=== PATIENT | female | born 1965 | race Caucasian/White ===

== ENCOUNTER 2016-06-23 09:03 | Emergency (ER) | payer OTHER ==
[~2016-06-23] VITALS: Wt 81.0 kg
[~2016-06-23 09:03] MED LIST: ALBUTEROL; AMO500 PO; ASPIRIN; IBUP-1542 PO; LOSA25TA5 PO; OMEP40CA6 PO; PRED50TA PO
[2016-06-23] MEDS ORDERED: KETOROLAC 60 MG INJ IM STA (09:54)
--- NOTE | 2016-06-23 10:27 | ERD ---
ER Documentation Chief Complaint Date/Time DATE: 06/23/16 TIME: 10:24 Chief Complaint LEFT HAND/KNEE/LEG PAIN AFTER FALL HPI This is a 51-year-old Pashto-speaking female that presents to the emergency department complaining of left hand pain and left knee pain that has been present for the past 12 hours. The patient had a ground-level trip and fall outside of her apartment yesterday and landed on a flexed left knee on a cement surface. The patient also had landed on her left outstretched hand. She is complaining of pain over her left second digit which she states is exacerbated with movement. She is right-handed dominant. She denies any pain of her wrist. She states that the knee pain on the left side is also exacerbated by movement and is 8 out of 10 in intensity. She did not take any analgesic medication prior to arrival. Upon awakening this morning the patient stated she noticed swelling on the front and back of her knee. She states there is also minimal amount of pain over the proximal surface of her left lower extremity. She denies any tenderness of her left calf. She stated there was no abrasions or lacerations as a result of the fall. She has no numbness or tingling of her lower extremities. She did not hit her head or lose consciousness. ROS All systems reviewed and are negative except as per history of present illness. Medications Home Meds Active Scripts Prednisone* (Prednisone*) 50 Mg Tablet, 50 MG PO DAILY, #5 TAB Prov:LEONEL CORTEZ NP 05/17/16 Ibuprofen* (Motrin*) 600 Mg Tab, 600 MG PO Q6H Y for PAIN AND OR ELEVATED TEMP, #30 TAB Prov:LEONEL CORTEZ NP 05/17/16 Amoxicillin* (Amoxicillin*) 500 Mg Cap, 500 MG PO TID for 10 Days, CAP Prov:LEONEL CORTEZ NP 05/17/16 Reported Medications [Albuterol] No Conflict Check 02/25/16 [Aspirin] No Conflict Check 02/25/16 Losartan Potassium* (Losartan Potassium*) 25 Mg Tablet, 25 MG PO DAILY, TAB 01/03/16 Omeprazole* (Omeprazole*) 40 Mg Capsule.dr, 40 MG PO DAILY, #30 CAP 01/03/16 Allergies Allergies: Coded Allergies: No Known Allergy (Unverified , 8/8/16) PMhx/Soc Anesthesia Reaction: No Hx Neurological Disorder: No Hx Respiratory Disorders: Yes (ASTHMA) Hx Cardiac Disorders: Yes (HTN) Hx Psychiatric Problems: No Hx Alcohol Use: No Hx Substance Use: No Hx Tobacco Use: No Smoking Status: Never smoker Physical Exam Vitals Vital Signs Date Time Temp Pulse Resp B/P Pulse Ox O2 Delivery O2 Flow Rate FiO2 06/23/16 09:05 98.0 81 18 126/51 99 Physical Exam Constitutional:Well-developed. Well-nourished. HEENT:Normocephalic. Atraumatic.Pupils were equal round reactive to light. Moist mucous membranes.No tonsillar exudates. Neck: No nuchal rigidity. No lymphadenopathy. No posterior cervical spine tenderness or step-offs. Respiratory: Not using accessory muscles of respiration.Lungs were clear to auscultation bilaterally. No rhonchi. No rales. No wheezing. Cardiovascular: Regular rate regular rhythm.No murmurs. No rubs were appreciated.S1, S2 normal. Distal pulses are palpable 2+ bilaterally. GI: Abdomen was soft. Nontender. Non Distended. No pulsatile abdominal masses or bruits. No rebound. No guarding. Bowel sounds were present and normal. Muscle skeletal: Full range of motion of both the upper and lower extremities bilaterally.Normal muscle tone.No assymetrical calf tenderness or swelling. Tenderness of the left patella with mild effusion on the anterior aspect of the knee and mild suprapatellar tenderness and fullness to the posterior aspect of the knee. No laxity on valgus or varus stress testing at the left or the right knee. No tenderness over the bilateral fibular head. No asymmetrical calf tenderness or swelling and Homans sign negative bilaterally. Flexion extension ulnar and radial deviation of the bilateral wrists were normal. Tenderness over the distal left second metacarpal, left index finger was not held in slight flexion and no tenderness with passive extension of the left index finger and no fusiform swelling of the left index finger. Skin: No petechia, no purpura. No lesions on the palms or the soles of the feet. No maculopapular rash. No abrasions and no erythremia of the overlying skin that had the blunt trauma. NEURO: Patient was alert, awake, orientated x3.No facial droop. Gait observed and normal with no ataxia.Speech had regular rate and rhythm. No focal neurological deficits. Results 24 hrs Current Medications Medications (Trade) Dose Ordered Sig/Feliciano Route PRN Reason Start Time Stop Time Status Last Admin Dose Admin Ketorolac Tromethamine (Toradol) 60 mg ONCE STAT IM 06/23/16 09:54 06/23/16 09:55 DC 06/23/16 10:04 Procedures/MDM This patient presented to the emergency department with a ground-level fall on an outstretched hand in a flexed left knee. Utilizing the [place] ankle and knee rules radiographic imaging was obtained of the left knee. There is no fractures or dislocations. The patient had no evidence or risk factors for underlying necrotizing fasciitis that could be a result of the blunt trauma. I did feel the patient's pain was from a sprain and she was placed in a knee immobilizer for comfort. Afterwards the patient was reevaluated by myself and was neurovascularly intact. There is no physical exam findings to suggest compartment syndrome of the left lower extremity or a deep vein thrombosis. She received a Toradol injection for analgesic control. A two-view radiographic imaging of the left hand or and reviewed by myself indicated there was no evidence of a fracture. The patient was discharged home in fair condition. They were instructed to return to the emergency department at any time if there was any worsening of their condition. The patient stated they would follow up with their PCP in the next 24-48 hours to initiate a suitable medication regimen under the care of their PCP as well as to allow their PCP to monitor any drug reactions. The patient was discharged home with prescriptions after they gave informed consent to the new medication. They were also fully informed by myself on the adverse effects and adverse drug interactions in order to provide adequate safeguards to prevent possible adverse reactions to medications. Departure Diagnosis: Primary Impression: Left knee sprain Encounter type: initial encounter Involved ligament of knee: unspecified ligament Qualified Code: S83.92XA - Sprain of left knee, unspecified ligament , initial encounter Additional Impression: Sprain of hand, left Encounter type: initial encounter Qualified Code: S63.92XA - Sprain of hand , left, initial encounter Condition: Fair PRASHANTLYDIA Jun 23, 2016 10:27
--- NOTE | 2016-06-23 10:37 | RADRPT ---
PROCEDURE: XR left hand. CLINICAL INDICATION: Hand pain TECHNIQUE: Three views are available for review. COMPARISON: No prior studies are available for comparison. FINDINGS: The osseous structures are normal in mineralization, architecture and alignment. No fracture or oss eous lesion is identified. The joints are unremarkable. The soft tissues are unremarkable. IMPRESSION: Unremarkable examination. RPTAT: HGDB .Maximo Birmingham MD, Date Time Electronically viewed and signed by .Maximo Birmingham MD, on 06/23/2016 10:37 .B/
--- NOTE | 2016-06-23 10:38 | RADRPT ---
PROCEDURE: XR left knee. CLINICAL INDICATION: Knee pain TECHNIQUE: 3 views are available for review. COMPARISON: None available FINDINGS: The osseous structures are normal in mineralization, architecture and alignment. No fractures are i dentified. No osseous lesions are identified. The joints are unremarkable. The soft tissues are u nremarkable. IMPRESSION: Unremarkable examination RPTAT: HGDB .Maximo Birmingham MD, MD Date Time Electronically viewed and signed by .Maximo Birmingham MD, on 06/23/2016 10:38 .B/
[2016-06-23] MEDS ORDERED: IBUP800T25 PO (11:13)
== END 2016-06-23 11:31 | disposition home or self-care (01) ==
LOC: FTE 09:03
DX: S83.92XA Sprain of unspecified site of left knee, initial encounter (principal); S63.92XA Sprain of unspecified part of left wrist and hand, initial encounter; J45.901 Unspecified asthma with (acute) exacerbation; I10 Essential (primary) hypertension; W01.0XXA Fall on same level from slipping, tripping and stumbling without subsequent striking against object, initial encounter; Y92.039 Unspecified place in apartment as the place of occurrence of the external cause
CPT/HCPCS: 73130; 73562; J1885

== ENCOUNTER 2016-11-13 17:16 | Emergency (ER) | payer OTHER ==
[~2016-11-13] VITALS: Ht 152.4 cm; Wt 79.5 kg
[~2016-11-13 17:16] MED LIST changes: +IBUP800T25 PO
[2016-11-13 17:23] VITALS: Ht 152.4 cm; Wt 79.5 kg
[2016-11-13] MEDS ORDERED: ERYTOPOI LEFT EYE (19:12)
[2016-11-13] MEDS ORDERED: IBUP-1542 PO (19:12)
--- NOTE | 2016-11-13 19:16 | ERD ---
ER Documentation Chief Complaint Date/Time DATE: 11/13/16 TIME: 19:13 Chief Complaint LT EYE REDNESS AND PAIN, HEADACHE HPI Patient is a 51-year-old female who presents with left eye redness that began today. She also has mild left-sided headache. Denies any nausea vomiting, dizziness, photosensitivity, double or blurry vision. Denies any trauma. Denies any pain with eye movement. Denies any fever. Denies any exudate or crusting. She has not taken any medication for pain. ROS All systems reviewed and are negative except as per history of present illness. Medications Home Meds Active Scripts Ibuprofen* (Motrin*) 600 Mg Tab, 600 MG PO Q6, #30 TAB Prov:RHEA MONTES PA-C 11/13/16 Erythromycin* (Erythromycin* Ophthalmic) 1 Applic Oint, 1 APPLIC LEFT EYE QID for 7 Days, EA Prov:RHEA MOTNES PA-C 11/13/16 Ibuprofen* (Motrin*) 800 Mg Tab, 800 MG PO Q6H Y for PAIN AND OR ELEVATED TEMP, #30 TAB Prov:LYDIA CERDA 06/23/16 Prednisone* (Prednisone*) 50 Mg Tablet, 50 MG PO DAILY, #5 TAB Prov:LEONEL CORTEZ NP 05/17/16 Ibuprofen* (Motrin*) 600 Mg Tab, 600 MG PO Q6H Y for PAIN AND OR ELEVATED TEMP, #30 TAB Prov:LEONEL CORTEZ NP 05/17/16 Amoxicillin* (Amoxicillin*) 500 Mg Cap, 500 MG PO TID for 10 Days, CAP Prov:LEONEL CORTEZ NP 05/17/16 Reported Medications [Albuterol] No Conflict Check 02/25/16 [Aspirin] No Conflict Check 02/25/16 Losartan Potassium* (Losartan Potassium*) 25 Mg Tablet, 25 MG PO DAILY, TAB 01/03/16 Omeprazole* (Omeprazole*) 40 Mg Capsule.dr, 40 MG PO DAILY, #30 CAP 01/03/16 Allergies Allergies: Coded Allergies: No Known Allergy (Unverified , 01/03/16) PMhx/Soc Anesthesia Reaction: No Hx Neurological Disorder: No Hx Respiratory Disorders: Yes (ASTHMA) Hx Cardiac Disorders: Yes (HTN) Hx Psychiatric Problems: No Hx Alcohol Use: No Hx Substance Use: No Hx Tobacco Use: No Smoking Status: Never smoker FmHx Family History: No diabetes Physical Exam Vitals Vital Signs Date Time Temp Pulse Resp B/P Pulse Ox O2 Delivery O2 Flow Rate FiO2 11/13/16 17:23 97.6 81 16 129/61 100 Physical Exam Const: [] Head: Atraumatic Eyes: Left lateral subconjunctival hemorrhage, pupils equal round reactive to light, extraocular movements intact, no periorbital erythema or edema ENT: Normal External Ears, Nose and Mouth. Neck: Full range of motion..~ No meningismus. Resp: Clear to auscultation bilaterally Cardio: Regular rate and rhythm, no murmurs Procedures/MDM Patient has subconjunctival hemorrhage. I explained her these resolved typically on their own. I did however give her erythromycin ointment in case there is underlying infection as well as Motrin for pain. Her visual acuity was 20/[address] around both eyes separately and together. Low suspicion for iritis, uveitis, glaucoma, retinal detachment, or any other ocular emergency. Recommended this patient follow up with her primary care doctor within 48 hours or return to the emergency room for any worsening of symptoms. However this time I do believe there is suitable for outpatient management. I answered all their questions and they agreed with the plan and were discharged home. Departure Diagnosis: Primary Impression: Subconjunctival hemorrhage Condition: Stable Patient Instructions: Subconjunctival Hemorrhage Additional Instructions: Call your primary care doctor TOMORROW for an appointment during the next 1-2 days.See the doctor sooner or return here if your condition worsens before your appointment time. RHEA MONTES PA-C Nov 13, 2016 19:16
== END 2016-11-13 19:38 | disposition home or self-care (01) ==
LOC: FTE 17:16
DX: H11.32 Conjunctival hemorrhage, left eye (principal); J45.909 Unspecified asthma, uncomplicated; I10 Essential (primary) hypertension; Z79.82 Long term (current) use of aspirin
CPT/HCPCS: 99283

== ENCOUNTER 2017-01-19 06:10 | Day surgery (SDC) | payer OTHER ==
[2017-01-19] VITALS (28 sets, daily range): BP systolic 107–148; BP diastolic 57–94; PULSE 62–80; RESP 11–28; Ht 152.4 cm; Wt 80.0 kg
[~2017-01-19] VITALS: Ht 152.4 cm; Wt 80.0 kg
[~2017-01-19 06:10] MED LIST changes: +ERYTOPOI LEFT EYE
[2017-01-19] MEDS ORDERED: HEPARIN 1000 UNITS/ML 10 ML INJ ONE (06:41)
[2017-01-19] MEDS ORDERED: IODIXANOL LOCM 100 ML BTL ONE (06:41)
[2017-01-19] MEDS ORDERED: LIDOCAINE 1% (MDV) 20 ML INJ ONE (06:41)
[2017-01-19] MEDS ORDERED: VERAPAMIL 5 MG INJ ONE (06:41)
[2017-01-19] MEDS ORDERED: NITROGLYCERIN (IC) 100 MCG/ML INJ ONE (06:41)
[2017-01-19] MEDS ORDERED: FENTAnyl 50 MCG/ML VIAL ONE (06:42)
[2017-01-19] MEDS ORDERED: MIDAZOLAM 1 MG/ML 2 ML INJ ONE (06:42)
[2017-01-19] MEDS ORDERED: ALBU90AE INHALATION (06:55)
[2017-01-19] MEDS ORDERED: RANI300T PO (06:55)
[2017-01-19] MEDS ORDERED: FLUT16SP17 NASAL (06:55)
[2017-01-19] MEDS ORDERED: CETI10TA34 PO (06:55)
[2017-01-19] MEDS ORDERED: LORA0.5T PO (06:55)
[2017-01-19] MEDS ORDERED: OMEP20CA16 PO (06:55)
[2017-01-19] MEDS ORDERED: MONT10TA24 PO (06:55)
[2017-01-19] MEDS ORDERED: AZEL137S9 NASAL (06:55)
[2017-01-19] MEDS ORDERED: METO10TA96 PO (06:55)
[2017-01-19 07:08] LABS: BASOPHILS % 0.4 % (0.0-2.0); EOSINOPHILS # 0.1 10^3/ul (0.0-0.5); EOSINOPHILS % 1.5 % (0.0-7.0); HEMATOCRIT 37.3 % (37.0-47.0); HEMOGLOBIN 12.7 g/dl (12.0-16.0); LYMPHOCYTES # 1.6 10^3/ul (0.8-2.9); LYMPHOCYTES % 29.4 % (15.0-51.0); MEAN CORPUSCULAR HEMOGLOBIN 30.9 pg (29.0-33.0); MEAN CORPUSCULAR VOLUME 90.8 fl (82.0-101.0); MEAN PLATELET VOLUME 9.8 fl (7.4-10.4); MONOCYTE # 0.5 10^3/ul (0.3-0.9); MONOCYTES % 8.2 % (0.0-11.0); NEUTROPHILS % 60.1 % (39.0-77.0); PLATELET COUNT 209 10^3/UL (140-415); RED BLOOD COUNT 4.11 10^6/ul (4.20-5.40); RED CELL DISTRIBUTION WIDTH 12.2 % (11.5-14.5); WHITE BLOOD COUNT 5.5 10^3/ul (4.8-10.8)
[2017-01-19 07:31] LABS: INR 1.04; PROTIME 13.6 Sec (12.2-14.2); PT RATIO 1.1
[2017-01-19 07:57] LABS: CALCIUM 8.6 mg/dl (8.4-10.2); CREATININE 0.52 mg/dl (0.44-1.00); POTASSIUM 4.4 mmol/L (3.5-5.1)
[2017-01-19] MEDS ORDERED: SOD CHLORIDE 0.9% 1,000 ML IV SCH (08:06)
--- NOTE | 2017-01-19 08:06 | EN ---
Date/Time of Note Date/Time of Note DATE: 01/19/17 TIME: 08:03 Event Note Cardiology Cardiology Event Note DATE OF PROCEDURE: 01/19/17 MUSHROOM PRESS OPERATOR: Charlie Jj MD PROCEDURES PERFORMED: 1. Left heart catheterization. PREINTERVENTION DIAGNOSIS: 1. Chest pain, positive stress echo POSTINTERVENTION DIAGNOSES: 1. No significant coronary artery disease SEDATION: Conscious sedation with fentanyl 50 mcg IV and Versed 1 mg IV. DESCRIPTION OF PROCEDURE: The patient placed on monitor car operator, pulse oximetry and supplemental oxygen as necessary. The right wrist was prepped and draped in a sterile fashion and infiltrated with 1% lidocaine. Via the Seldinger technique, the right radial artery was accessed. A 5-Uzbek sheath was inserted and through this the right coronary catheter and left coronary catheter and pigtail were advanced into the right coronary artery and left coronary artery and the left ventricle. Placement confirmed by fluoroscopy and hemodynamics. CATHETERIZATION FINDINGS: 1. Left main: No significant disease. 2. LAD: Large caliber vessel with no significant disease. 3. Circumflex: Medium caliber vessel with no significant disease. 4. Obtuse marginal: Medium caliber vessel with no significant disease. 5. RCA: Large dominant vessel with no significant disease TOTAL CONTRAST: 25cc FLUOROSCOPY TIME: 3.5 minutes. COMPLICATIONS: None. FINAL RESULTS: No siginficant coronary artery disease RECOMMENDATIONS: 1. Medical Management 2. Discharge home CHARLIE JJ Jan 19, 2017 08:06
[2017-01-19] MEDS ORDERED: METOCLOPRAMIDE 10 MG TAB PO PRN (08:30)
[2017-01-19] MEDS ORDERED: LORAZEPAM 0.5 MG TAB PO PRN (08:30)
[2017-01-19] MEDS ORDERED: AZELASTINE 30 ML NAS SPRAY NASAL SCH (09:00)
[2017-01-19] MEDS ORDERED: FLUTICASONE 0.05% 16 GM NAS SPRAY NASAL SCH (09:00)
[2017-01-19] MEDS ORDERED: LOSARTAN 25 MG TAB PO SCH (09:00)
--- NOTE | 2017-01-19 17:12 | RADRPT ---
Vent Rate: 79 bpm RR Interval: 0 msec MS Interval: 146 msec QRS Duration: 78 msec QT Interval: 368 msec QTC Interval: 421 msec P-R-T Weir: 52 - 12 - 55 degrees Normal sinus rhythm Normal ECG Electronically Signed By: Pola Paul [id number]
[2017-01-19] MEDS ORDERED: RANITIDINE 150 MG TAB PO SCH (21:00)
[2017-01-19] MEDS ORDERED: MONTELUKAST 10 MG TAB PO SCH (21:00)
== END 2017-01-19 12:15 | disposition home or self-care (01) ==
LOC: SDS 06:10 → CCL 12:15
PROVIDERS: ATTEND Internal Medicine
DX: R07.9 Chest pain, unspecified (principal); R94.39 Abnormal result of other cardiovascular function study
CPT/HCPCS: 80048; 85025; 85610; 93005; 93458; C1769; C1887; J1644; J2250; J3010; Q9967; Z7610

== ENCOUNTER 2017-05-25 21:18 | Emergency (ER) | END 2017-05-26 06:01 | disposition home or self-care (01) ==

== ENCOUNTER 2018-12-24 00:33 | Emergency (ER) | payer OTHER ==
[~2018-12-24] VITALS: Ht 154.9 cm; Wt 70.5 kg
[~2018-12-24 00:33] MED LIST changes: +ALBU90AE INHALATION; -AMO500 PO; +AZEL137S9 NASAL; +CETI10TA34 PO; -ERYTOPOI LEFT EYE; +FLUT16SP17 NASAL; -IBUP800T25 PO; +LORA0.5T PO; +LOSA25TA12 PO; -LOSA25TA5 PO; +METO10TA3 PO; +MONT10TA24 PO; +OMEP20CA16 PO; -PRED50TA PO; +RANI300T PO; +SUCR1TAB56 PO
[2018-12-24 00:43] VITALS: Ht 154.9 cm; Wt 70.5 kg
[2018-12-24] MEDS ORDERED: LORAZEPAM 2 MG INJ IV ONE (03:30)
[2018-12-24] MEDS ORDERED: LIDOCAINE/MYLANTA 40 ML BTL PO ONE (03:30)
--- NOTE | 2018-12-24 04:44 | ERD ---
ER Documentation Chief Complaint Chief Complaint CHEST PAIN X1HR WITH SOB HPI This is a 53-year-old female chest pain for 1 hour with shortness of breath. Pain is mild to moderate in intensity with no exacerbating alleviating factors. She said it is worse secondary to anxiety she feels a metallic taste in the back of her mouth. Denies fevers or chills. Denies any other current complaints. ROS All systems reviewed and are negative except as per history of present illness. Medications Home Meds Active Scripts Sucralfate* (Carafate*) 1 Gm Tab, 1 GM PO QID, #60 TAB Prov:MACIE SANCHEZ 12/24/18 Ibuprofen* (Motrin*) 600 Mg Tab, 600 MG PO Q6, #30 TAB Prov:BECKY LEIGH 05/26/17 Reported Medications Metoclopramide Hcl* (Metoclopramide Hcl*) 10 Mg Tablet, 10 MG PO TID PRN for NAUSEA, TAB 01/19/17 Cetirizine Hcl* (Cetirizine Hcl*) 10 Mg Tab.chew, 10 MG PO DAILY, #30 TAB 01/19/17 Omeprazole* (Omeprazole*) 20 Mg Capsule.dr, 20 MG PO BID, #60 CAP 01/19/17 Ranitidine Hcl* (Ranitidine Hcl*) 300 Mg Tablet, 300 MG PO HS, #30 TAB 01/19/17 Montelukast Sodium* (Montelukast Sodium*) 10 Mg Tablet, 10 MG PO QHS, #30 TAB 01/19/17 Lorazepam* (Lorazepam*) 0.5 Mg Tablet, 0.5 MG PO HS PRN for ANXIETY, TAB 01/19/17 Fluticasone Propionate* (Fluticasone Propionate* Nasal) 50 Mcg/[place] - 16 Gm [place].susp, 1 SPRAY NASAL BID, #1 BOTTLE TO EACH NOSTRIL 01/19/17 Azelastine Hcl* (Azelastine Hcl*) 137 Mcg/0.137 Ml [place].pump, 1 SPRAY NASAL BID, #1 EA TO EACH NOSTRIL 01/19/17 Albuterol Sulfate (Proair Respiclick) 90 Mcg Aer.pow.ba, 2 PUFFS INHALATION Q4 PRN for SHORTNESS OF BREATH, #1 BOTTLE 01/19/17 [Albuterol] No Conflict Check 02/25/16 [Aspirin] No Conflict Check 02/25/16 Losartan Potassium* (Losartan Potassium*) 25 Mg Tablet, 25 MG PO DAILY, TAB 01/03/16 Omeprazole* (Omeprazole*) 40 Mg Capsule.dr, 40 MG PO DAILY, #30 CAP 01/03/16 Allergies Allergies: Coded Allergies: No Known Allergy (Unverified , 01/03/16) PMhx/Soc History of Surgery: Yes (cholecystectomy) Anesthesia Reaction: Yes Hx Neurological Disorder: No Hx Respiratory Disorders: Yes (Asthma) Hx Cardiac Disorders: Yes (htn, hld) Hx Psychiatric Problems: No Hx Miscellaneous Medical Probl: Yes (HTN, asthma, gastritis) Hx Alcohol Use: No Hx Substance Use: No Hx Tobacco Use: No Smoking Status: Unknown if ever smoked Physical Exam Vitals Vital Signs Date Temp Pulse Resp B/P (MAP) Pulse Ox O2 O2 Flow FiO2 Time Delivery Rate 12/24/18 97.5 97 19 159/73 97 00:43 (101) Physical Exam Const: No acute distress Head: Atraumatic Eyes: Normal Conjunctiva ENT: Normal External Ears, Nose and Mouth. Neck: Full range of motion. No meningismus. Resp: Clear to auscultation bilaterally Cardio: Regular rate and rhythm, no murmurs Abd: Soft, non tender, non distended. Normal bowel sounds Skin: No petechiae or rashes Back: No midline or flank tenderness Ext: No cyanosis, or edema Neur: Awake and alert Psych: Normal Mood and Affect Result Diagram: 12/24/18 0255 12/24/18 0255 Results 24 hrs Laboratory Tests Test 12/24/18 02:55 White Blood Count 6.8 10^3/ul Red Blood Count 4.22 10^6/ul Hemoglobin 12.9 g/dl Hematocrit 38.7 % Mean Corpuscular Volume 91.7 fl Mean Corpuscular Hemoglobin 30.6 pg Mean Corpuscular Hemoglobin Concent 33.3 g/dl Red Cell Distribution Width 11.7 % Platelet Count 193 10^3/UL Mean Platelet Volume 9.8 fl Immature Granulocytes % 0.300 % Neutrophils % 74.8 % Lymphocytes % 18.7 % Monocytes % 5.3 % Eosinophils % 0.6 % Basophils % 0.3 % Nucleated Red Blood Cells % 0.0 /100WBC Immature Granulocytes # 0.020 10^3/ul Neutrophils # 5.1 10^3/ul Lymphocytes # 1.3 10^3/ul Monocytes # 0.4 10^3/ul Eosinophils # 0.0 10^3/ul Basophils # 0.0 10^3/ul Nucleated Red Blood Cells # 0.0 10^3/ul Sodium Level 141 mmol/L Potassium Level 3.9 mmol/L Chloride Level 105 mmol/L Carbon Dioxide Level 29 mmol/L Anion Gap 7 Blood Urea Nitrogen 7 mg/dl Creatinine 0.57 mg/dl Est Glomerular Filtrat Rate mL/min > 60 mL/min Glucose Level 146 mg/dl Calcium Level 9.1 mg/dl Troponin I < 0.012 ng/ml B-Type Natriuretic Peptide 42 PG/ML Current Medications Medications Dose Sig/Feliciano Start Time Status Last (Trade) Ordered Route PRN Stop Time Admin Dose Reason Admin 40 ml ONCE ONCE 12/24/18 DC 12/24/18 Miscellaneous PO 03:30 03:16 Medication 12/24/18 03:31 (Gi Cocktail (2)) Lorazepam 1 mg ONCE ONCE 12/24/18 DC 12/24/18 (Ativan) IV 03:30 03:17 12/24/18 03:31 Procedures/MDM EKG: Rate/Rhythm: [Normal Sinus Rhythm] QRS, ST, T-waves: [No changes consistent w/ acute ischemia] Impression: [No evidence of ischemia or arrhythmia] Chest X-ray 1V Interpreted by me: Soft Tissue: No acute abnormalities Bones: No acute abnormalities Mediastinum/Cardiac Silhouette/Lungs: [No acute abnormalities] Patient's thoracic symptoms have stabilized while in the department and are stable for outpatient follow up. Exam and work up not consistent w/ ischemia, arrhythmia, PE or dissection. Departure Diagnosis: Primary Impression: Chest pain Chest pain type: unspecified Qualified Codes: R07.9 - Chest pain, unspecified Condition: Stable Patient Instructions: Chest Pain, Uncertain Cause, Gastritis (Adult) MACIE SANCHEZ Dec 24, 2018 04:44
[2018-12-24 05:11] VITALS: BP 118/74; PULSE 66; RESP 19
== END 2018-12-24 05:11 | disposition home or self-care (01) ==
LOC: E/R 00:33
DX: R07.9 Chest pain, unspecified (principal); J45.909 Unspecified asthma, uncomplicated; I10 Essential (primary) hypertension
CPT/HCPCS: 71045; 80048; 83880; 84484; 85025; 93005; J2060; Z7610; 36415; 96374